=== PATIENT | male | born 1985 | race African-American/Black ===

== ENCOUNTER 2017-03-24 00:46 | Emergency (ER) | payer MEDICAID ==
[~2017-03-24] VITALS: Ht 160 cm; Wt 63.5 kg
[~2017-03-24 00:46] MED LIST: IBUPROFEN600 MG ORAL
[2017-03-24 01:06] VITALS: BP 134/87
[2017-03-24] MEDS ORDERED: ACETAMINOPHEN-1 EAC1 ORAL (01:30)
[2017-03-24] MEDS ORDERED: VENTOLIN HFA18 GM INH (01:30)
[2017-03-24] MEDS ORDERED: FLONASE SENSIM9.9 ML NS (01:30)
[2017-03-24 01:34] VITALS: BP 134/87
--- NOTE | 2017-03-24 01:42 | Emergency Room Report ---
History of Present Illness General Chief Complaint: Upper Respiratory Illness Source: Patient Present Illness HPI 31-year-old male walks in with 1 month of recurring symptoms including sore throat, rhinorrhea, sinus congestion and cough. States colleague sick with pneumonia, the antibiotics recently. 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 denies, fever/chills, myalgias. Got the flu vaccine this year. Took DayQuil today. Allergies: Coded Allergies: No Known Allergies (Unverified , 08/08/15) Patient History Past Medical History: none Past Surgical History: none Pertinent Family History: none Social History: Denies: smoking, alcohol use, drug use Immunizations: UTD Reviewed Nursing Documentation: PMH: Agreed, PSxH: Agreed Nursing Documentation-PMH Past Medical History: No Stated History Review of Systems All Other Systems: negative except mentioned in HPI Physical Exam Vital Signs Date Time Temp Pulse Resp B/P (MAP) Pulse Ox O2 Delivery O2 Flow Rate FiO2 03/24/17 00:52 97.9 73 18 134/87 98 Room Air 03/24/17 01:06 98 Sp02 EP Interpretation: reviewed, normal General Appearance: normal inspection, well appearing, no apparent distress, alert, GCS 15, non-toxic Head: normocephalic, atraumatic Eyes: bilateral eye PERRL, bilateral eye EOMI ENT: normal ENT inspection, hearing grossly normal, normal pharynx, no angioedema, normal voice, TMs + canals normal, uvula midline, moist mucus membranes, pharyngeal erythema Neck: normal inspection, full range of motion, supple, thyroid normal, no meningismus, no bony tend Respiratory: normal inspection, lungs clear, normal breath sounds, no rhonchi, no respiratory distress, no retraction, no accessory muscle use, no wheezing, speaking full sentences Cardiovascular #1: regular rate, rhythm, no edema, no JVD, normal capillary refill Gastrointestinal: normal inspection, normal bowel sounds, non tender, soft, no mass, no peritonitis, non-distended, no guarding, no hernia, no pulsatile mass Genitourinary: no CVA tenderness Musculoskeletal: normal inspection, back normal, normal range of motion, no calf tenderness, pelvis stable, Sj's Sign negative Neurologic: normal inspection, alert, oriented x3, responsive, 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 Vital signs stable, afebrile Likely viral URI with postnasal drip and sinus congestion advised supportive treatment ER course: Patient has remained stable during ED stay. Disposition: Patient is to be discharged to home. Prescriptions given are flonase, ventolin, T#3 Patient is instructed to follow up with their primary care doctor within 5 days. Strict return precautions discussed with patient such as fever, chills, worsening/severe pain, nausea, vomiting, which may indicate severe illness. Patient verbalizes understanding and agrees with plan. Please note that this Emergency Department Report was dictated using [employer] equipment operator technology software, occasionally this can lead to erroneous entry secondary to interpretation by the dictation equipment Last Vital Signs Date Time Temp Pulse Resp B/P (MAP) Pulse Ox O2 Delivery O2 Flow Rate FiO2 03/24/17 01:34 97.9 73 18 134/87 98 Room Air 98 Status: improved Disposition: HOME, SELF-CARE Condition: Improved Scripts Acetaminophen With Codeine (T#3) (TYLENOL #3 TAB*) Y Tab 1 TAB ORAL QHS Y for For Cough for 7 Days, #20 TAB Prov: ABDI DURAN M.D. 03/24/17 Albuterol Sulfate (VENTOLIN HFA) 18 Gm Hfa.aer.ad 1 PUFF INH EVERY 6 HOURS for For Cough, #18 GM 0 Refills Prov: ABDI DURAN M.D. 03/24/17 Fluticasone Furoate (FLONASE SENSIMIST) 9.9 Ml [place].susp 9.9 ML NS BID for 7 Days, #1 UNIT Prov: ABDI DURAN M.D. 03/24/17 Patient Instructions: Upper Respiratory Infection, Adult ABDI DURAN M.D. Mar 24, 2017 01:42
== END 2017-03-24 01:34 | disposition home or self-care (01) ==
LOC: EMR 01:18
DX: J06.9 Acute upper respiratory infection, unspecified (principal)
CPT/HCPCS: 99283